=== PATIENT | male | born 1995 | race Caucasian/White ===

== ENCOUNTER 2022-02-01 17:48 | Emergency (ER) | payer SELFPAY ==
[~2022-02-01] VITALS: Ht 182.9 cm; Wt 77.0 kg
[2022-02-01 17:50] VITALS: BP 130/80
== END 2022-02-01 18:24 | disposition left against medical advice (07) ==
LOC: ER 17:48
DX: Z53.21 Procedure and treatment not carried out due to patient leaving prior to being seen by health care provider (principal)